=== PATIENT | female | born 1960 | race Caucasian/White ===

== ENCOUNTER 2022-02-06 09:00 | Outpatient (CLI) | payer OTHER, SELFPAY ==
--- NOTE | 2022-02-06 09:15 | CRLHL7_ITS ---
For Patients: As a result of the Century Cures Act, medical imaging exams and procedure reports are released immediately into your electronic medical record. You may view this report before your referring provider. If you have questions, please contact your health care provider. BILATERAL MAMMOGRAM WITH COMPUTER-AIDED DETECTION AND TOMOSYNTHESIS TECHNIQUE: CC and MLO views were obtained. These mammographic images have been obtained using full-field digital technique. These mammographic images were interpreted with the benefit of computer-aided detection. Breast Tomosynthesis was used in this interpretation. COMPARISON FILM: 01/21/21, 01/12/30, 01/01/19. FINDINGS: The breasts are heterogeneously dense, which may obscure small masses IMPRESSION: There is no radiographic evidence for malignancy. ASSESSMENT: BI-RADS Category 1: Negative RECOMMENDATION: Routine screening mammogram in 1 year. A lay language report of this examination will be provided to the patient. David Cook M.D. Diagnostic Radiologist [email or web address] [place]/Dictated by: David Cook MD @ 02/06/2022 11:01:00 AM (Electronically Signed)
== END 2022-02-06 09:01 | disposition home or self-care (01) ==
LOC: MAMMO 09:03
PROVIDERS: PCP Family Medicine; Visit Provider Family Medicine
DX: Z12.31 Encounter for screening mammogram for malignant neoplasm of breast (principal); R92.2 Inconclusive mammogram
CPT/HCPCS: 77063; 77067

== ENCOUNTER 2022-03-29 11:03 | Outpatient (CLI) | payer OTHER, SELFPAY ==
[2022-03-29 10:29] LABS: Cholesterol* 289 mg/dL (90-199); Triglycerides* 67 mg/dL (40-149)
[2022-03-29 10:30] LABS: HDL Cholesterol* 86 mg/dL (>=50); LDL Cholesterol Calculated 190 mg/dL (<100)
== END 2022-03-29 11:04 | disposition home or self-care (01) ==
PROVIDERS: PCP Family Medicine; Visit Provider Family Medicine
DX: Z01.419 Encounter for gynecological examination (general) (routine) without abnormal findings (principal); E78.5 Hyperlipidemia, unspecified; G43.909 Migraine, unspecified, not intractable, without status migrainosus; D70.9 Neutropenia, unspecified; D72.819 Decreased white blood cell count, unspecified; N18.9 Chronic kidney disease, unspecified
CPT/HCPCS: 80061

== ENCOUNTER 2022-06-13 11:07 | Outpatient (CLI) | payer OTHER, SELFPAY ==
[2022-06-13 17:44] LABS: Chloride* 99 mmol/L (96-114)
[2022-06-13 17:45] LABS: Albumin* 4.9 g/dL (3.3-5.0); Sodium* 134 mmol/L (135-149)
[2022-06-13 17:48] LABS: Blood Urea Nitrogen* 16 mg/dL (7-30); Calcium* 9.3 mg/dL (8.4-10.6); Carbon Dioxide* 26 mmol/L (20-32); Creatinine* 0.7 mg/dL (0.5-1.5); Estimated Glomerular Filt Rate 100 ml/min; Glucose* 121 mg/dL (60-115); Phosphorus* 3.5 mg/dL (2.5-4.5); Uric Acid* 4.2 mg/dL (2.2-8.4)
== END 2022-06-13 11:08 | disposition home or self-care (01) ==
LOC: LONREF 11:08
PROVIDERS: PCP Family Medicine; Visit Provider Internal Medicine Nephrology
DX: N20.9 Urinary calculus, unspecified (principal)
CPT/HCPCS: 80069; 82310; 82340; 82436; 82507; 83735; 83945; 83970; 83986; 84105; 84133; 84300; 84392; 84550; 84560

== ENCOUNTER 2022-09-07 08:08 | Outpatient (CLI) | payer OTHER, SELFPAY ==
[2022-09-07 14:52] LABS: Albumin* 4.5 g/dL (3.3-5.0); Chloride* 105 mmol/L (96-114); Potassium* 4.2 mmol/L (3.6-5.1); Sodium* 139 mmol/L (135-149)
[2022-09-07 14:55] LABS: Blood Urea Nitrogen* 13 mg/dL (7-30); Carbon Dioxide* 29 mmol/L (20-32); Creatinine* 0.8 mg/dL (0.5-1.5); Estimated Glomerular Filt Rate 84 ml/min; Glucose* 107 mg/dL (60-115)
[2022-09-07 14:56] LABS: Calcium* 9.3 mg/dL (8.4-10.6); Phosphorus* 3.9 mg/dL (2.5-4.5)
[2022-09-07 15:14] LABS: Creatinine Urine 86.4 mg/dL; Microalbumin Creatinine Ratio 10 mg/g (0-30); Microalbumin Urine 1 mg/dL
== END 2022-09-07 08:09 | disposition home or self-care (01) ==
PROVIDERS: PCP Family Medicine; Visit Provider Internal Medicine Nephrology
DX: D72.819 Decreased white blood cell count, unspecified (principal); N20.9 Urinary calculus, unspecified
CPT/HCPCS: 80069; 82043; 82310; 82340; 82436; 82507; 82570; 83735; 83945; 83970; 83986; 84105; 84133; 84300; 84392; 84560; 87086

== ENCOUNTER 2023-03-28 07:33 | Outpatient (CLI) | payer OTHER, SELFPAY | END 2023-03-28 07:34 | disposition home or self-care (01) | PROVIDERS: PCP Family Medicine; Visit Provider Family Medicine | DX: Z00.00 Encounter for general adult medical examination without abnormal findings (principal); E78.00 Pure hypercholesterolemia, unspecified; E78.5 Hyperlipidemia, unspecified; D72.819 Decreased white blood cell count, unspecified; N20.9 Urinary calculus, unspecified | CPT/HCPCS: 80053; 80061 ==

== ENCOUNTER 2023-04-03 14:24 | Outpatient (CLI) | payer OTHER, SELFPAY ==
--- NOTE | 2023-04-03 14:40 | CRLHL7_ITS ---
For Patients: As a result of the Century Cures Act, medical imaging exams and procedure reports are released immediately into your electronic medical record. You may view this report before your referring provider. If you have questions, please contact your health care provider. BILATERAL SCREENING MAMMOGRAM WITH COMPUTER-AIDED DETECTION AND TOMOSYNTHESIS TECHNIQUE: CC and MLO views were obtained. These mammographic images have been obtained using full-field digital technique. These mammographic images were interpreted with the benefit of computer-aided detection. Breast Tomosynthesis was used in this interpretation. COMPARISON FILM: 01/21/21, 01/08/20, 01/01/19/ FINDINGS: The breasts are heterogeneously dense, which may obscure small masses IMPRESSION: There is no radiographic evidence for malignancy. ASSESSMENT: BI-RADS Category 1: Negative RECOMMENDATION: Routine screening mammogram in 1 year. A lay language report of this examination will be provided to the patient. David Cook M.D. Diagnostic Radiologist [email or web address] [place]/Dictated by: David Cook MD @ 04/04/2023 12:03:00 PM (Electronically Signed)
== END 2023-04-03 14:25 | disposition home or self-care (01) ==
LOC: MAMMO 14:25
PROVIDERS: PCP Family Medicine; Visit Provider Family Medicine
DX: Z12.31 Encounter for screening mammogram for malignant neoplasm of breast (principal); R92.2 Inconclusive mammogram
CPT/HCPCS: 77063; 77067

== ENCOUNTER 2023-04-16 07:00 | Outpatient (CLI) | payer OTHER, SELFPAY ==
--- NOTE | 2023-04-16 07:15 | CRLHL7_ITS ---
For Patients: As a result of the Century Cures Act, medical imaging exams and procedure reports are released immediately into your electronic medical record. You may view this report before your referring provider. If you have questions, please contact your health care provider. CLINICAL HISTORY: neutropenia, r/o hepatosplenomegaly COMPARISON: CT 11/08/2021 TECHNIQUE: Real time patel scale imaging and color Doppler analysis was performed of the abdomen. FINDINGS: Sonographic imaging demonstrates normal size and uniform echotexture of the liver. The spleen is of normal size. The spleen measures 8.6 cm. The pancreas appears normal. The proximal abdominal aorta and IVC appear normal. There is no evidence of ascites. The gallbladder is of normal size and there is no evidence of sludge or stones within the gallbladder lumen. The gallbladder wall measures 2 mm in thickness. The common bile duct measures 4 mm in size within the glenna hepatis. The kidneys appear symmetric. The right kidney measures 10.9 cm in length and the left kidney measures 10.5 cm. Hyperechoic stone within the lower pole of the left kidney measuring 9 millimeters. IMPRESSION: No splenomegaly or ascites. Nonobstructing left renal stone again noted. Dictated by David Cook MD @ 04/16/2023 9:49:15 AM (Electronically Signed)
== END 2023-04-16 07:01 | disposition home or self-care (01) ==
LOC: US 07:01
PROVIDERS: PCP Family Medicine; Visit Provider Internal Medicine Hematology & Oncology
DX: D70.9 Neutropenia, unspecified (principal); N20.0 Calculus of kidney
CPT/HCPCS: 76700

== ENCOUNTER 2023-06-28 08:11 | Outpatient (CLI) | payer OTHER, SELFPAY | END 2023-06-28 08:12 | disposition home or self-care (01) | LOC: NFLDREF 06-29 10:32 | PROVIDERS: PCP Family Medicine; Referring Provider Family Medicine; Visit Provider Family Medicine | DX: E78.00 Pure hypercholesterolemia, unspecified (principal) | CPT/HCPCS: 80061 ==

== ENCOUNTER 2023-08-06 14:30 | Outpatient (RCR) | payer OTHER, SELFPAY ==
[2023-04-10 09:26] LABS: Immature Reticulocyte Fraction 3.3 % (3.0-15.9); Reticulocyte Hemoglobin Equivi 30.5 pg (29.0-35.0); Reticulocyte Percent 0.9 % (0.5-2.0); Reticulocytes Absolute 0.04 # (0.03-0.08)
[2023-04-10 09:50] LABS: Albumin* 4.9 g/dL (3.3-5.0)
[2023-04-10 09:53] LABS: Alanine Aminotransferase* 34 U/L (4-35); Alkaline Phosphatase* 51 U/L (40-150); Aspartate Amino Transferase* 38 U/L (12-35); Total Protein* 7.8 g/dL (6.0-8.3)
[2023-04-10 10:24] LABS: Hepatitis B Surface Antigen* Negative (Negative)
[2023-04-10 10:34] LABS: HIV 1/2/P24 Combo Screen* Negative (Negative)
[2023-04-10 10:42] LABS: Vitamin B12* 868 pg/mL (243-894)
[2023-04-12 06:08] LABS: Copper, Serum/Plasma 86.2 ug/dL (80.0-155.0)
[2023-04-12 07:36] LABS: Anti-Nuclear Ab(ANA)IgG ELISA None Detected (None Detected)
[2023-04-14 12:47] LABS: Folate, Serum >22.3 ng/mL (>=5.9)
[2023-05-02 15:59] LABS: Hepatitis C Virus Antibody* Negative (Negative)
== END 2023-10-07 23:59 | disposition home or self-care (01) ==
LOC: CCIC 14:30
PROVIDERS: PCP Family Medicine; Visit Provider Internal Medicine Hematology & Oncology
DX: D70.9 Neutropenia, unspecified (principal)
CPT/HCPCS: 36415; 80076; 82525; 82607; 82746; 85045; 86039; 86703; 86803; 87340; 99202; 99204; 99212; 99213; 99214; G0463

== ENCOUNTER 2024-03-28 07:51 | Outpatient (CLI) | payer OTHER, SELFPAY ==
--- OUTSIDE RECORDS SUMMARY | 2024-03-30 02:27 | XMS_ITS | Clinical Summary ---
Author Organization [facility] Address [address] [place] [address] Care Team Providers Care Maintenance Machine Repairer Name Role Phone Hakan Méndez MD Primary Care Provider [phone] Source Comments You are receiving this document as you are listed as the primary care provider,follow-up provider, or the patient has been referred to you for consultation.This is in compliance with the Medicare and[facility] EHR Incentive Program,which states Providers who transition their patient to another setting of careor provider of care or refers their patient to another provider of care shouldprovide summary care record for each transition of care or referral. [facility] Allergies Active Allergy Reactions Criticality Noted Date Comments Penicillins Hives 01/02/2013 Sulfa Antibiotics Hives 01/02/2005 Medications Medication Sig Dispensed Refills Start Date End Date Status [place]-3 Fatty Acids ([facility] FISH OIL) 1200 MG CAPS daily (every 24 hours). 05/27/2009 Active Multiple Vitamins-Minerals (CENTRUM OR) Take 1 tablet by mouth daily (every 24 hours). 05/11/2015 Active Active Problems Problem Noted Date Diagnosed Date Dyslipidemia 10/27/2016 History of adenomatous polyp of colon 04/08/2014 Overview (10/27/2016): Last colonoscopy 2016, next due in 2021. Chronic low back pain 01/02/2013 Immunizations Name Administration Dates Next Due Flu Vac Preserv Free (3+yrs) 05/09/2010 Fluvirin Vaccine 03/26/2014 Influenza IIV4 (Quadrivalent) 0.5mL (45710) 09/2014 TDAP (BOOSTRIX) 05/27/2009 Td 06/26/2002 Family History Medical History Relation Name Comments Diabetes Father High Blood Pressure Father High Cholesterol Father Diabetes Mother High Blood Pressure Mother High Cholesterol Mother Diabetes Maternal Grandfather Diabetes Maternal Grandmother Cancer Negative Family History Cancer, Colon Negative Family History Cancer, Endometrial Negative Family History Diethylstilbestrol Exposure Negative Family History Relation Name Status Comments Father Alive Mother Alive Maternal Grandfather Maternal Grandmother Social History Tobacco Use Types Packs/Day Years Used Date Smoking Tobacco: Never Smokeless Tobacco: Never Alcohol Use Standard Drinks/Week Comments No 0 (1 standard drink = 0.6 oz pur e alcohol) Sex and Gender Information Value Date Recorded Sex Assigned at Not on file Gender Identity Not on file Sexual Orientation Not on file Last Filed Vital Signs Vital Sign Reading Time Taken Comments Blood Pressure 118/66 09/20/2023 10:00 AM CDT Pulse 67 09/20/2023 10:00 AM CDT Temperature 37.1 ??C (98.8 ??F) 05/21/2005 3:52 PM CS T C: 37.1 C Respiratory Rate 16 08/25/2016 4:10 PM FISHERIES ENFORCEMENT OFFICER Oxygen Saturation 97% 08/25/2016 4:10 PM FISHERIES ENFORCEMENT OFFICER Inhaled Oxygen Concentration - - Weight 62.1 kg (137 lb) 09/20/2023 10:00 AM CDT Height 163.8 cm (5' 4.5) 11/21/2016 9:54 AM CDT Body Mass Index 23.15 11/21/2016 9:54 AM CDT Plan of Treatment Health Maintenance Due Date Last Done Comments Hep C Screening (Preventive Services) 1960 HIV Screening (Preventive Services) 1978 Cervical Cancer Screening Due 05/02/2008 05/01/2008, 01/02/2005, 12/31/2003 Zoster/Shingles (1 of 2) 2012 Adult Preventive Visit 10/27/2017 10/27/2016 Mammogram 10/27/2017 10/27/2016, 11/0 09/2014, 03/23/2014, Additional history exists DTaP/Tdap/Td (2 - Tdap) 05/27/2019 05/27/2009, 06/26 Colonoscopy 08/25/2021 08/25/2016, 03/11 (Completed) Cholesterol 10/27/2021 10/27/2016, 09/2014, 04/08/2014, Additional history exists COVID-19 Vaccine (2023- season) 2024 Influenza (#1) 2024 05/11/2015, 09/2014 (Completed), 04/08/2014 (Completed), Additional history exists RSV (1 - 1-dose 75+ series) 2037 HepA Aged Out No longer eligi ble based on patient's age to complete this topic HepB Aged Out No longer eligi ble based on patient's age to complete this topic Hib Aged Out No longer eligi ble based on patient's age to complete this topic IPV (Polio) Aged Out No longer eligi ble based on patient's age to complete this topic MCV4 Aged Out No longer eligi ble based on patient's age to complete this topic Pneumococcal Aged Out No longer eligi ble based on patient's age to complete this topic Procedures Procedure Name Priority Date/Time Associated Diagnosis Comments MM MAMMOGRAM SCREENING BILAT W CAD Routine 10/27/2016 10:32 AM CDT Visit for screening mammogram LIPID PANEL & DIRECT LDL (IF NEEDED) Routine 10/27/2016 9:08 AM CDT Dyslipidemia ENDOSCOPY, COLON, SCREENING/DIAGNOSTIC Routine 08/25/2016 2:36 PM FISHERIES ENFORCEMENT OFFICER Colon polyps ANATOMICAL PATH LIQUID BASED Routine 05/01/2008 8:08 AM CDT from Last 3 Months or Most Recently Relevant to Health Maintenance Results * MM Mammogram Screening Bilat W CAD (10/27/2016 10:32 AM CDT) Anatomical Region Laterality Modality Breast Bilateral Mammography Impressions 10/27/2016 10:52 AM CDT : ACR BI-RADS Category 1: Negative RECOMMENDATION: Follow Up Imaging in 12 months - Bilateral The results and recommendations of this examination will be communicated to the patient. Narrative 10/27/2016 10:52 AM CDT MM MAMMOGRAM SCREENING BILAT W CAD performed on 10/27/16 Compared to: 05/11/2015 MM Mammogram Screening Bilat W CAD, 03/23/2014 MM Mammogram Screening Bilat W CAD, 01/02/2013 MM Mammogram Screening Bilat W CAD FINDINGS: Bilateral screening mammogram was performed with the assistance of Computer-Aided Detection. The breasts are heterogeneously dense, which may obscure small masses. There is no radiographic evidence of malignancy. ?? Hakan Méndez MD RAD FELA * (ABNORMAL) Lipid Panel - LDLD If Trig High (10/27/2016 9:08 AM CDT) Cholesterol 266(H) 0 - 199 mg/dL PN SOFT Triglycerides 112 4 - 149 mg/dL PN SOFT HDL Cholesterol 73 >39 mg/dL PN SOFT Cholesterol/HDL Ratio Screen 3.6 PN SOFT LDL Calculated 171(H) 19 - 130 mg/dL PN SOFT Hours Fasting 12.0 PN SOFT 10/27/2016 9:08 AM CDT 10/27/2016 9:08 AM CDT Narrative PN SOFT - 10/27/2016 9:32 AM CDT Performed at [facility] [address] [address] [id number] Hakan Méndez MD LAB_1 PN SOFT [address] [place], [place] [address] * Endoscopy, colon, diagnostic (08/25/2016 2:36 PM FISHERIES ENFORCEMENT OFFICER) Anatomical Region Laterality Modality Other 08/25/2016 2:36 PM FISHERIES ENFORCEMENT OFFICER Narrative 08/25/2016 2:36 PM FISHERIES ENFORCEMENT OFFICER Patient Name: Zena Aguiar Procedure Date: 08/25/2016 2:36 PM Date of : 1960 Admit Type: Outpatient Age: 56 Gender: Female Note Status: Finalized Attending MD: Bernard Arias MD Procedure: ? Colonoscopy Indications: ? High risk colon cancer surveillance: ? Personal history of colonic polyps, ? Last colonoscopy: March 2013 Providers: ? Bernard Arias MD, Yuliana Chicas. ? ALFA Pfeiffer Referring MD: ?Hakan Méndez MD Medicines: ? Midazolam 2 mg IV, Fentanyl 100 ? micrograms IV Complications: ? No immediate complications. Procedure: ? After I obtained informed consent, ? the scope was passed under direct ? vision. Throughout the procedure, the ? patient's blood pressure, pulse, and ? oxygen saturations were monitored ? continuously. The [id number] was ? introduced through the anus and ? advanced to the terminal ileum, with ? identification of the appendiceal ? orifice and IC valve. The colonoscopy ? was performed without difficulty. The ? patient tolerated the procedure well. ? The quality of the bowel preparation ? was good. Findings: ? The digital rectal exam showed no masses. ? The entire examined colon appeared normal on direct ? and retroflexion views. ? The terminal ileum appeared normal. Impression: ?- The entire examined colon is normal ? on direct and retroflexion views. Recommendation: ?- Repeat colonoscopy in 5 years for ? surveillance. Procedure Code(s): ?? --- Professional --- ? G0105, Colorectal cancer screening; ? colonoscopy on individual at high risk Diagnosis Code(s): ?? --- Professional --- ? Z86.010, Personal history of colonic ? polyps CPT copyright 2014 [employer]. All rights reserved. The codes documented in this report are preliminary and upon animal physiologist review may be revised to meet current compliance requirements. Bernard Arias MD 08/25/2016 3:53:18 PM This document has been electronically signed. Number of Addenda: 0 Note Initiated On: 08/25/2016 2:36 PM ? Endoscopy Report Procedure Note Bernard Arias MD - 08/25/2016 Patient Name: Zena Aguiar Procedure Date: 08/25/2016 2:36 PM Date of : 1960 Admit Type: Outpatient Age: 56 Gender: Female Note Status: Finalized Attending MD: Bernard Arias MD Procedure: Colonoscopy Indications: High risk colon cancer surveillance: Personal history of colonic polyps, Last colonoscopy: March 2013 Providers: Bernard Arias MD, Yuliana Pfeiffer, RN Referring MD: Hakan Méndez MD Medicines: Midazolam 2 mg IV, Fentanyl 100 micrograms IV Complications: No immediate complications. Procedure: After I obtained informed consent, the scope was passed under direct vision. Throughout the procedure, the patient's blood pressure, pulse, and oxygen saturations were monitored continuously. The [id number] was introduced through the anus and advanced to the terminal ileum, with identification of the appendiceal orifice and IC valve. The colonoscopy was performed without difficulty. The patient tolerated the procedure well. The quality of the bowel preparation was good. Findings: The digital rectal exam showed no masses. The entire examined colon appeared normal on direct and retroflexion views. The terminal ileum appeared normal. Impression: - The entire examined colon is normal on direct and retroflexion views. Recommendation: - Repeat colonoscopy in 5 years for surveillance. Procedure Code(s): --- Professional --- G0105, Colorectal cancer screening; colonoscopy on individual at high risk Diagnosis Code(s): --- Professional --- Z86.010, Personal history of colonic polyps CPT copyright 2014 [employer]. All rights reserved. The codes documented in this report are preliminary and upon animal physiologist review may be revised to meet current compliance requirements. Bernard Arias MD 08/25/2016 3:53:18 PM This document has been electronically signed. Number of Addenda: 0 Note Initiated On: 08/25/2016 2:36 PM Endoscopy Report Bernard Arias MD PN GI PROCEDURE EMMANUEL HERNANDEZ * Pap Smear (05/01/2008 8:08 AM CDT) PAP Smear Liquid Based SEE TEXT No normal range HP CONVERSION Comment: Patient: ZENA AGUIAR ? CERVICAL CYTOLOGY REPORT Pathology # ??[id number] ?Date Obtained: ? Date Received: CYTOLOGIC IMPRESSION: Negative for intraepithelial lesion or malignancy. Verified 05/05/08 by: ? (electronic signature) ? ADDITIONAL DATA LMP: CLINICAL HIST LIQUID BASED PAP VAGINAL SPECIMEN ADEQUACY: ?? Satisfactory. ENDOCERVICAL CELLS: ??Absent; patient has had a hysterectomy. 05/01/2008 8:08 AM CDT Hakan Méndez MD LAB_1 HP CONVERSION from Last 3 Months or Most Recently Relevant to Health Maintenance Care Teams Maintenance Machine Repairer Relationship Specialty Start Date End Date Hakan Mén[place] [address] [address] [place] [address] [facility] - General 10/10/10
--- NOTE | 2024-05-07 09:16 | ONC.NURNOTE ---
Butcher Apprentice called to schedule a [address] follow up [address] Zuluaga, patient did not want to schedule only wanted to have a blood drawn.
== END 2024-03-28 07:52 | disposition home or self-care (01) ==
LOC: NFLDREF 03-30 02:26
PROVIDERS: PCP Family Medicine; Referring Provider Family Medicine; Visit Provider Family Medicine
DX: E78.00 Pure hypercholesterolemia, unspecified (principal); D72.819 Decreased white blood cell count, unspecified; E78.5 Hyperlipidemia, unspecified
CPT/HCPCS: 80053; 80061

== ENCOUNTER 2024-06-11 11:14 | Outpatient (CLI) | payer OTHER, SELFPAY ==
--- OUTSIDE RECORDS SUMMARY | 2024-06-11 11:16 | XMS_ITS | Clinical Summary ---
Author Organization [facility] Address [address] [place] [address] Care Team Providers Care Tobacco Flavorer Name Role Phone Hakan Méndez MD Primary Care Provider [phone] Source Comments You are receiving this document as you are listed as the primary care provider,follow-up provider, or the patient has been referred to you for consultation.This is in compliance with the Medicare and[facility] Cent[facility]aid EHR Incentive Program,which states Providers who transition their patient to another setting of careor provider of care or refers their patient to another provider of care shouldprovide summary care record for each transition of care or referral. [facility] Allergies Active Allergy Reactions Criticality Noted Date Comments Penicillins Hives 01/02/2013 Sulfa Antibiotics Hives 01/02/2005 Medications Medication Sig Dispensed Refills Start Date End Date Status [place]-3 Fatty Acids ([facility] FISH OIL) 1200 MG [...] Fluvirin Vaccine 03/26/2014 Influenza IIV4 (Quadrivalent) 0.5mL (53485) 09/2014 TDAP (BOOSTRIX) 05/27/2009 Td 06/26/2002 Family [...] 67 09/20/2023 10:00 AM CDT Temperature 37.1 C (98.8 F) 05/21/2005 3:52 PM SWINE NUTRITIONIST C: 37.1 C Respiratory Rate 16 08/25/2016 4:10 PM SWINE NUTRITIONIST Oxygen Saturation 97% 08/25/2016 4:10 PM SWINE NUTRITIONIST Inhaled Oxygen Concentration - - Weight 62.1 [...] on patient's age to complete this topic RSV Aged Out No longer eligi ble based [...] ENDOSCOPY, COLON, SCREENING/DIAGNOSTIC Routine 08/25/2016 2:36 PM SWINE NUTRITIONIST Colon polyps ANATOMICAL PATH LIQUID BASED Routine [...] There is no radiographic evidence of malignancy. Hakan Méndez MD RAD FELA * (ABNORMAL) [...] - 10/27/2016 9:32 AM CDT Performed at [facility], [address] [place] [address] CLIA number [id number] Hakan Méndez MD LAB_1 Performing Organization Address City/State/[facility] Co de Phone Number PN SOFT [address] [place], [place] [id number] * Endoscopy, colon, diagnostic (08/25/2016 2:36 PM SWINE NUTRITIONIST) Anatomical Region Laterality Modality Other 08/25/2016 2:36 PM SWINE NUTRITIONIST Narrative 08/25/2016 2:36 PM SWINE NUTRITIONIST Patient Name: Zena Aguiar Procedure Date: 08/25/2016 2:36 PM Date of : 1960 Admit Type: Outpatient Age: 56 Gender: Female Note Status: Finalized Attending MD: Bernard Arias MD Procedure: Colonoscopy Indications: High risk colon cancer surveillance: Personal history of colonic polyps, Last colonoscopy: March 2013 Providers: Bernard Arias MD, Yuliana Pfeiffer RN Referring MD: Hakan Méndez MD Medicines: Midazolam 2 mg IV, Fentanyl 100 micrograms IV Complications: No immediate complications. Procedure: After I obtained informed consent, the scope was passed under direct vision. Throughout the procedure, the patient's blood pressure, pulse, and oxygen saturations were monitored continuously. The [id number] was introduced through the anus and advanced [...] history of colonic polyps CPT copyright 2014 [employer]. All rights reserved. The codes documented in this report are preliminary and upon sausage machine operator review may be revised to meet current compliance requirements. Bernard Arias MD 08/25/2016 3:53:18 PM This document has been electronically signed. Number of Addenda: 0 Note Initiated On: 08/25/2016 2:36 PM Endoscopy Report Procedure Note Bernard Arias MD - 08/25/2016 Patient Name: Zena Aguiar Procedure Date: 08/25/2016 2:36 PM Date of : 1960 Admit Type: Outpatient Age: 56 Gender: Female Note Status: Finalized Attending MD: Bernard Arias MD Procedure: Colonoscopy Indications: High risk colon cancer surveillance: Personal history of colonic polyps, Last colonoscopy: March 2013 Providers: Bernard Arias MD, Yuliana Pfeiffer RN Referring MD: Hakan Méndez MD Medicines: Midazolam 2 mg IV, Fentanyl 100 micrograms IV Complications: No immediate complications. Procedure: After I obtained informed consent, the scope was passed under direct vision. Throughout the procedure, the patient's blood pressure, pulse, and oxygen saturations were monitored continuously. The [id number] was introduced through the anus and advanced [...] history of colonic polyps CPT copyright 2014 [employer]. All rights reserved. The codes documented in this report are preliminary and upon sausage machine operator review may be revised to meet current compliance requirements. Bernard Arias MD 08/25/2016 3:53:18 PM This document has been electronically signed. Number of Addenda: 0 Note Initiated On: 08/25/2016 2:36 PM Endoscopy Report Bernard Arias MD ET GI PROCEDURE ORDFidel DIAOJ * Pap Smear (05/01/2008 8:08 AM CDT) PAP Smear Liquid Based SEE TEXT No normal range HP CONVERSION Comment: Patient: ZENA AGUIAR CERVICAL CYTOLOGY REPORT Pathology # [id number] Date Obtained: Date Received: CYTOLOGIC IMPRESSION: Negative for intraepithelial lesion or malignancy. Verified 05/05/08 by: (electronic signature) ADDITIONAL DATA LMP: CLINICAL HIST LIQUID BASED PAP VAGINAL SPECIMEN ADEQUACY: Satisfactory. ENDOCERVICAL CELLS: Absent; patient has had a hysterectomy. 05/01/2008 8:08 AM CDT Hakan Méndez MD LAB_1 HP CONVERSION from Last 3 Months or Most Recently Relevant to Health Maintenance Care Teams Tobacco Flavorer Relationship Specialty Start Date End Date Hakan [place]én[place] [address] [place] [address] PCP - General 10/10/10
--- NOTE | 2024-06-11 11:30 | CRLHL7_ITS ---
For Patients: As a result of the Century Cures Act, medical imaging exams and procedure reports are released immediately into your electronic medical record. You may view this report before your referring provider. If you have questions, please contact your health care provider. BILATERAL SCREENING MAMMOGRAM WITH COMPUTER-AIDED DETECTION AND TOMOSYNTHESIS TECHNIQUE: CC and MLO views were obtained. These mammographic images have been obtained using full-field digital technique. These mammographic images were interpreted with the benefit of computer-aided detection. Breast Tomosynthesis was used in this interpretation. COMPARISON FILM: 04/03/23, 02/06/22, 01/21/21. FINDINGS: The breasts are heterogeneously dense, which may obscure small masses. IMPRESSION: There is no radiographic evidence for malignancy. ASSESSMENT: BI-RADS Category 1: Negative RECOMMENDATION: Routine screening mammogram in 1 year. A lay language report of this examination will be provided to the patient. David Cook M.D. Diagnostic Radiologist [email or web address] SP/Dictated by: David Cook MD @ 06/11/2024 12:55:00 PM (Electronically Signed)
== END 2024-06-11 11:15 | disposition home or self-care (01) ==
LOC: MAMMO 11:15
PROVIDERS: PCP Family Medicine; Visit Provider Family Medicine
DX: Z12.31 Encounter for screening mammogram for malignant neoplasm of breast (principal); R92.333 Mammographic heterogeneous density, bilateral breasts
CPT/HCPCS: 77063; 77067

== ENCOUNTER 2025-04-01 07:30 | Outpatient (CLI) | payer OTHER, SELFPAY | END 2025-04-01 07:31 | disposition home or self-care (01) | LOC: NFLDREF 04-03 14:25 | PROVIDERS: PCP Family Medicine; Referring Provider Family Medicine; Visit Provider Family Medicine | DX: E78.5 Hyperlipidemia, unspecified (principal); D70.9 Neutropenia, unspecified; E78.00 Pure hypercholesterolemia, unspecified | CPT/HCPCS: 80053; 80061 ==